=== PATIENT | male | born 1995 | race Two or more races ===

== ENCOUNTER 2020-06-07 16:25 | Outpatient (REF) | payer OTHER, SELFPAY | END 2020-06-07 16:26 | disposition home or self-care (01) | LOC: HO.LAB 16:25 | PROVIDERS: PCP Internal Medicine; Visit Provider Internal Medicine | DX: Z20.828 Contact with and (suspected) exposure to other viral communicable diseases (principal) | CPT/HCPCS: C9803; U0003 ==

== ENCOUNTER 2020-06-24 22:34 | Emergency (ER) | payer OTHER, SELFPAY ==
[2020-06-24 22:42] VITALS: BP 120/84; BP 129/86; PULSE 82; PULSE 83; RESP 16; TEMP 37; O2SAT 100; O2SAT 98; BMI 30.6
--- NOTE | 2020-06-24 22:47 | ECG_ITS ---
Test Reason : UNRESPONSIVE Blood Pressure : / mmHG Vent. Rate : 084 BPM Atrial Rate : 084 BPM P-R Int : 164 ms QRS Dur : 082 ms QT Int : 346 ms P-R-T Axes : 043 054 018 degrees QTc Int : 408 ms Normal sinus rhythm Normal ECG No previous ECGs available Referred By: Adiel Bravo Electronically Signed By:JONNY JACOB
--- NOTE | 2020-06-24 22:52 | PC.NURSE ---
PT RESPONDED TO AMMONIA CAPSULE BY TURNING HEAD AWAY, REACHING UP WITH RIGHT ARM. PT DRANK 1-2 SIPS OF WATER AND SWALLOWED. PT PURPOSEFULLY NOT RESPONDING, WILL OPEN MOUTH FOR ORAL TEMPERATURE BUT NOT CLOSE MOTH. RECTAL TEMPERATURE NECESSARY TO COMPLETE VITALS.
[2020-06-24 22:57] LABS: Glucose, Whole Blood 73 mg/dL (60-115)
--- NOTE | 2020-06-24 23:00 | ED.AMS ---
HPI - Altered Mental Status General Chief Complaint: Psychiatric Symptoms Stated Complaint: UNRESPONSIVE PAIN,NORM VS,? MED INGESTION Time Seen by Provider: 06/24/20 22:47 Source: EMS Mode of arrival: EMS Limitations: altered mental status History of Present Illness HPI narrative: For patient's girlfriend patient was depressed for last few days and found unresponsive in bed with an unlabeled empty medication bottle patient not responding but vitals were stable POC was 73 saturating 98% at room air no signs of head injury no vomitus around the patient at scene no history of substance abuse in the past MD complaint: altered mental status Related Data Allergies Allergy/AdvReac Type Severity Reaction Status Date / Time No Known Allergies Allergy Verified 06/25/20 01:15 Review of Systems Review of Systems: Yes Unobtainable due to mental status PMFSH Social History Social History Advance Directives: No Physical Exam Vital Signs: Vital Signs: Last Vital Signs Temp 98.6 F 06/24/20 22:42 Pulse 86 06/25/20 00:00 Resp 16 06/24/20 22:42 BP 101/74 06/25/20 01:24 Pulse Ox 98 06/25/20 01:24 Body Mass Index 30.6 Const: General: no acute distress, well developed and patient obtunded Orientation/consciousness: patient obtunded HENMT: Head: Yes normal to inspection, Yes No palpable skull fracture present, Yes normocephalic and Yes atraumatic Ears: external ears normal General nose exam: Normal external nose present Face and sinus: Yes normal facial exam Mouth: Normal oral and palatal mucosa present Eyes: General: appearance normal, both eyes and all related structures Conjunctivae: conjunctivae normal Sclerae: sclerae normal Pupils: Equal, round and reactive pupils present Neck: Neck: Yes normal visual inspection, Yes no lymphadenopathy and Yes no meningeal signs Thyroid: Thyroid normal Chest: Chest palpation & inspection: normal inspection of the chest Resp: Effort & Inspection: normal respiratory effort Auscultation: clear to auscultation bilaterally, no crackles, no rales and no rhonchi Cardio: Jugular venous distension: no JVD Palpation: normal PMI Rate: regular rate Rhythm: regular rhythm Heart sounds: S1 normal heart sound present and S2 normal heart sound present GI: Inspection: Yes normal to inspection Palpation (GI): Soft to palpation Auscultation: normal bowel sounds Back/Spine/Pelvis: Thoracic/Lumbar Spine: thoracic and lumbar spine normal to inspection Neuro: Other: Patient is obtunded negative for any focal deficit Babinski absent General: no meningeal signs and patient obtunded Cranial nerves: Yes Equal, round and reactive pupils present Course Course Course Narrative: Patient does not meet any criteria for any drug overdose at this time normal vitals EKG was also normal and patient responded ammonia inhalation again went to sleep will do the basic workup including drug screening Reevaluation(s) Reevaluation #1: Patient responded more awake and Oliver catheter was placed said that he took some pills does not know the name, no medications at home and bottle was without any label. Per patient's girlfriend patient had done same thing about 5 years ago without any significant overdose Time: 00:11 Reevaluation #2: Patient sleepy but easily arousable but does not want to talk will get care team involved lab still pending, tox positive for benzo, will sign out patient to Dr. Phillips for disposition Time: 00:59 MDM - Altered Mental Status Lab Data Attestation: I reviewed the patient's lab results. Result diagrams: 06/24/20 23:49 06/25/20 00:59 Labs: Lab Results 06/24/20 06/24/20 06/24/20 Range/Units 22:40 23:49 23:50 WBC 8.7 (4.8-10.8) X10*3/uL RBC 6.28 H (4.60-5.80) X10*6/uL Hgb 16.8 (14.0-18.0) g/dl Hct 51.9 (42-52) % MCV 82.6 (80-98) fL MCH 26.8 L (27.0-33.0) pg MCHC 32.4 (31.0-36.0) g/dl RDW 12.4 (11.0-16.0) % Plt Count 370 (160-400) X10*3/uL MPV 8.8 L (9.4-12.4) fL Immature Gran % (Auto) 0.3 (0.0-0.4) % Neut % (Auto) 69.1 (45-73) % Lymph % (Auto) 21.4 (20-40) % [place] % (Auto) 7.5 (2-11) % Eos % (Auto) 1.1 (0-4) % Baso % (Auto) 0.6 (0-2) % Lymph # (Auto) 1.9 (1.2-4.9) X10*3/uL [place] # (Auto) 0.7 (0.1-1.2) X10*3/uL Eos # (Auto) 0.1 (0.0-0.4) X10*3/uL Baso # (Auto) 0.1 (0.0-0.2) X10*3/uL Abs Immat Gran (auto) 0.03 (0.00-0.03) X10*3/uL Absolute Neuts (auto) 6.0 (2.0-8.3) X10*3/uL Absolute Nucleated RBC 0.000 (0.0-0.012) X10*3/uL Nucleated RBC % (auto) 0.0 (0.0-0.2) /100WBC Sodium Cancelled Potassium Cancelled Chloride Cancelled Carbon Dioxide Cancelled Anion Gap Cancelled BUN Cancelled Creatinine Cancelled Estim Creat Clear Calc Cancelled Estimated GFR Cancelled POC Glucose 73 (60-115) mg/dL Random Glucose Cancelled Calcium Cancelled Total Bilirubin Cancelled AST Cancelled ALT Cancelled Alkaline Phosphatase Cancelled Total Protein Cancelled Albumin Cancelled Salicylates Cancelled Urine Opiates Screen (Not Detect) Acetaminophen Cancelled Ur Barbiturates Screen (Not Detect) Ur Phencyclidine Scrn (Not Detect) Ur Amphetamines Screen (Not Detect) U Benzodiazepines Scrn (Not Detect) Urine Cocaine Screen (Not Detect) U Marijuana (THC) Screen (Not Detect) Ethyl Alcohol mg/dL 06/24/20 06/25/20 06/25/20 Range/Units 23:50 00:03 00:59 WBC (4.8-10.8) X10*3/uL RBC (4.60-5.80) X10*6/uL Hgb (14.0-18.0) g/dl Hct (42-52) % MCV (80-98) fL MCH (27.0-33.0) pg MCHC (31.0-36.0) g/dl RDW (11.0-16.0) % Plt Count (160-400) X10*3/uL MPV (9.4-12.4) fL Immature Gran % (Auto) (0.0-0.4) % Neut % (Auto) (45-73) % Lymph % (Auto) (20-40) % [place] % (Auto) (2-11) % Eos % (Auto) (0-4) % Baso % (Auto) (0-2) % Lymph # (Auto) (1.2-4.9) X10*3/uL [place] # (Auto) (0.1-1.2) X10*3/uL Eos # (Auto) (0.0-0.4) X10*3/uL Baso # (Auto) (0.0-0.2) X10*3/uL Abs Immat Gran (auto) (0.00-0.03) X10*3/uL Absolute Neuts (auto) (2.0-8.3) X10*3/uL Absolute Nucleated RBC (0.0-0.012) X10*3/uL Nucleated RBC % (auto) (0.0-0.2) /100WBC Sodium 143 Potassium 3.5 Chloride 105 Carbon Dioxide 23 Anion Gap 19 BUN 13 Creatinine 1.19 Estim Creat Clear Calc 95.8 Estimated GFR > 60 POC Glucose (60-115) mg/dL Random Glucose 67 Calcium 10.2 Total Bilirubin 1.1 H AST 18 ALT 20 Alkaline Phosphatase 85 Total Protein 8.8 H Albumin 5.3 H Salicylates Urine Opiates Screen Not Detected (Not Detect) Acetaminophen Ur Barbiturates Screen Not Detected (Not Detect) Ur Phencyclidine Scrn Not Detected (Not Detect) Ur Amphetamines Screen Not Detected (Not Detect) U Benzodiazepines Scrn POSITIVE H (Not Detect) Urine Cocaine Screen Not Detected (Not Detect) U Marijuana (THC) Screen Not Detected (Not Detect) Ethyl Alcohol < 10 mg/dL ECG Data ECG #1: Attestation: I personally reviewed and interpreted this ECG as follows: Interpretation: Normal sinus rhythm heart rate 84 normal intervals normal axis no acute ST-T changes impression normal EKG Discharge Plan Discharge Clinical Impression: Mood disorder Depression Qualifiers: Depression Type: reactive depression Qualified Code(s): F32.9 - Major depressive disorder, single episode, unspecified
[2020-06-24 23:30] VITALS: BP 117/84; PULSE 87; O2SAT 97
[2020-06-24 23:56] LABS: MANUAL DIFF FLAG NO
--- NOTE | 2020-06-24 23:59 | PC.NURSE ---
PT ANSWERING WITH SHORT RESPONSES, IN [place] TO PCT. PT STATES HE TOOK PILLS TO GO TO SLEEP FOLLOWING A DISAGREEMENT WITH GIRLFRIEND.
[2020-06-25] VITALS (8 sets, daily range): BP systolic 101–136; BP diastolic 70–88; PULSE 70–90; RESP 14–16; TEMP 36.1; O2SAT 97–99
[2020-06-25 00:02] LABS: Basophils Absolute Auto 0.1 X10*3/uL (0.0-0.2); Basophils Percent Auto 0.6 % (0-2); Eosinophils Absolute Auto 0.1 X10*3/uL (0.0-0.4); Eosinophils Percent Auto 1.1 % (0-4); Hematocrit 51.9 % (42-52); Hemoglobin 16.8 g/dl (14.0-18.0); Imm Gran Abs Auto 0.03 X10*3/uL (0.00-0.03); Imm Gran Pct Auto 0.3 % (0.0-0.4); Lymphocytes Absolute Auto 1.9 X10*3/uL (1.2-4.9); Lymphocytes Percent Auto 21.4 % (20-40); Mean Corpuscular HGB Conc 32.4 g/dl (31.0-36.0); Mean Corpuscular Hemoglobin 26.8 pg (27.0-33.0); Mean Corpuscular Volume 82.6 fL (80-98); Mean Platelet Volume 8.8 fL (9.4-12.4); Monocytes Absolute Auto 0.7 X10*3/uL (0.1-1.2); Monocytes Percent Auto 7.5 % (2-11); Neutrophils Percent Auto 69.1 % (45-73); Platelet Count 370 X10*3/uL (160-400); Red Blood Count 6.28 X10*6/uL (4.60-5.80); Red Cell Distribution Width 12.4 % (11.0-16.0); White Blood Count 8.7 X10*3/uL (4.8-10.8)
[2020-06-25 00:20] LABS: Ethanol < 10 mg/dL
[2020-06-25 00:50] LABS: Amphetamine Screen Urine Not Detected (Not Detect); Barbiturates, Urine Not Detected (Not Detect); Benzodiazepines Screen Urine POSITIVE (Not Detect); Cannabinoid Screen Urine Not Detected (Not Detect); Cocaine Screen Urine Not Detected (Not Detect); Opiate Screen Urine Not Detected (Not Detect); Phencyclidine Screen Urine Not Detected (Not Detect)
--- NOTE | 2020-06-25 00:52 | PC.NURSE ---
PT REFUSING TO SPEAK TO MEMBER OF CARE TEAM, INTERPRETOR AT BEDSIDE.
--- NOTE | 2020-06-25 01:23 | PC.NURSE ---
PT AWAKE BUT SLEEPY, TORE EKG ELECTRODES OFF, WELL BP CUFF. PT REMOVED JLOOP AND THREW IT ON FLOOR.
--- NOTE | 2020-06-25 01:23 | MHC.CARE ---
CARE Team older adult social work specialist attempts to engage pt along with industrial therapist. Pt declines to participate in intervention. knockdown worker educates pt about referral to N and plan for crisis assessment in the morning.
[2020-06-25 01:31] LABS: Alanine Aminotransferase 20 U/L (0-40); Albumin Level 5.3 g/dL (3.5-5.0); Alkaline Phosphatase 85 U/L (39-117); Anion Gap 19 (12-20); Aspartate Amino Transferase 18 U/L (5-37); Bilirubin Total 1.1 mg/dL (0.0-1.0); Blood Urea Nitrogen 13 mg/dL (9-16); Calcium 10.2 mg/dL (8.4-10.2); Carbon Dioxide 23 mmol/L (22-29); Chloride 105 mmol/L (96-108); Creatinine Clr Calc Pharmacy 95.8; Estimated Glomerular Filt Rate > 60; Glucose Random 67 mg/dL (60-115); Potassium 3.5 mmol/l (3.3-5.1); Sodium 143 mmol/L (135-145); Total Protein 8.8 g/dL (6.5-8.0)
--- NOTE | 2020-06-25 01:51 | PC.NURSE ---
summary faxed to [facility].
[2020-06-25 03:12] LABS: Acetaminophen LAB < 1 mcg/mL (<30); Salicylate < 5.0 mg/dL (15-30)
--- NOTE | 2020-06-25 08:44 | PC.NURSE ---
Pt Refused any psychiatric sx, denies si/hi, unable to recall events prior to ed visit. denies self harm in past. aware he is awaiting n and agreeable. refused breakfast tray. belongings taken from bedside, to be secured in locker in pod
--- NOTE | 2020-06-25 10:40 | PC.NURSE ---
[facility] at bedside
--- NOTE | 2020-06-25 11:22 | PC.NURSE ---
Karina spoke with pt who continues to be vague. Dr Hernandez spoke with girlfriend Nicolas who states pt is depressed over not working at this time but doesnt disclose much info about depression or feelings. Girlfriend agreeable to pt had an SI attempt. Kenzie in to speak with pt and aware that pt will be on a section 12 and will have a [facility] follow up tomorrow.
--- NOTE | 2020-06-25 12:29 | PC.NURSE ---
Patient refuses afternoon meal.
--- NOTE | 2020-06-25 12:53 | PC.NURSE ---
Pt refuses lunch at this time. Request PO fluids at times. No home meds Calm/cooperative, in chair near bed
--- NOTE | 2020-06-25 14:17 | PC.NURSE ---
Pt noted to be standing at entryway of room with hands crossed over chest. Electrician Assistant called and this RN spoke to pt and reiterated plan for N follow up tomorrow. Pt states I want to leave, im fine now This RN continues to relay concerns for staff as pt came in obtunded as well as sister and girlfriends confirms pt is depressed over not having a job at this time and has done this in the past. Pt also made aware that he is unable to leave at this time and section 12 status for pt safety. Kenzie PA over to also speak to pt and discuss plan. Pt observer for monitoring/safety
--- NOTE | 2020-06-25 16:16 | PC.NURSE ---
Pt arrived to unit from main ED. Pt affect sad, pt states he does not feel he needs to be here. Pt denies SI, states that he did not attempt suicide but that he is having trouble sleeping. Pt oriented to unit, pt aware that crisis will be in tomorrow to re-evaluate. Pt currently resting in room.
--- NOTE | 2020-06-25 19:23 | PC.NURSE ---
Report received. PT is sleeping in the room. Breathing is even and unlabored. PT to have follow up visit with [facility] tomorrow morning.
--- NOTE | 2020-06-26 00:30 | PC.NURSE ---
Mother called earlier. Call back number is [phone].
[2020-06-26 06:00] VITALS: BP 109/71; PULSE 71; RESP 18; TEMP 36.9; O2SAT 99
--- NOTE | 2020-06-26 07:08 | PC.NURSE ---
Report received. PT currently on the phone, in no apparent distress. Pt to be re-evaluated by N this morning.
[2020-06-26 10:13] LABS: COVID-19 Test Negative (Negative)
[2020-06-26 10:14] VITALS: BP 118/85; PULSE 86; RESP 18; TEMP 37.1; O2SAT 99
== END 2020-06-26 10:59 | disposition home or self-care (01) ==
PROVIDERS: Internal Medicine; Physician Assistant Medical; Emergency Provider Emergency Medicine Emergency Medical Services
DX: F32.9 Major depressive disorder, single episode, unspecified (principal); Z20.828 Contact with and (suspected) exposure to other viral communicable diseases
CPT/HCPCS: 36415; 80053; 80307; 80320; 82947; 85025; 87635; 93005; 99285; G0480

== ENCOUNTER 2021-03-22 12:34 | Outpatient (REF) | payer OTHER, SELFPAY | END 2021-03-22 12:35 | disposition home or self-care (01) | LOC: HO.LAB 12:34 | PROVIDERS: Internal Medicine; PCP Internal Medicine; Visit Provider Internal Medicine | DX: Z20.822 Contact with and (suspected) exposure to COVID-19 (principal) | CPT/HCPCS: C9803; U0003; U0005 ==

== ENCOUNTER 2021-06-21 14:49 | Emergency (ER) | payer OTHER, SELFPAY ==
--- NOTE | ~2021-06-21 | XR_ITS ---
EXAMINATION: XR LUMBOSACRAL SPINE CLINICAL INFORMATION: Low back pain radiating down lower extremity. COMPARISON: CT lumbar spine 02/22/2019. TECHNIQUE: Three views of the lumbosacral spine. FINDINGS: There is normal lumbar segmentation with 5 nonrib-bearing lumbar vertebrae of normal height and normal lumbar lordosis. There is no lumbar vertebral compression, spondylolisthesis, disc space narrowing, destructive process. Bony mineralization appears normal. The SI joints and visualized sacrum are unremarkable. XR/XR lumbar spine 2-3V IMPRESSION: Unremarkable examination.
[2021-06-21 14:58] VITALS: BP 141/78; PULSE 87; RESP 18; TEMP 36.6; O2SAT 97; BMI 27.4
--- NOTE | 2021-06-21 16:07 | ED.BACK ---
HPI - Back Pain/Injury General Chief Complaint: Back Pain/Injury Stated Complaint: leg pain Time Seen by Provider: 06/21/21 16:02 Source: patient Mode of arrival: ambulatory Limitations: no limitations History of Present Illness HPI Narrative: 25-year-old male presents to ED for back pain radiating down left leg. Patient denies any testicular pain, abdominal pain, dysuria, hematuria, nausea, vomiting, fever, chills, or flank pain. Patient denies any trauma. Patient states pain started yesterday. Patient states he has had this before in the past and been evaluated and has found nothing wrong. Patient denies any urinary/bowel incontinence. Patient denies any history of IV drug use or immunocompromised disease. Related Data Previous Rx's Medication Instructions Recorded diphenhydramine HCl 25 mg tablet 50 mg PO BEDTIME PRN #10 tab 06/26/20 (Benadryl Allergy) cyclobenzaprine 10 mg tablet 10 mg PO TID PRN #18 tab 06/21/21 ketorolac 10 mg tablet 10 mg PO QID PRN 5 Days #20 tab 06/21/21 Allergies Allergy/AdvReac Type Severity Reaction Status Date / Time No Known Allergies Allergy Verified 06/25/20 01:15 Review of Systems Review of Systems: Yes all other systems are reviewed and are negative Constitutional: Constitutional: Reports as per HPI and Reports no additional constitutional complaints Eyes: Eyes: Reports as per HPI and Reports no additional eye complaints ENT: Reports system reviewed and no additional complaints, except as documented and Reports as per HPI Cardiovascular: Cardiovascular: Reports as per HPI and Reports no additional cardiovascular complaints Respiratory: Respiratory: Reports as per HPI and Reports no additional respiratory complaints Gastrointestinal: Gastrointestinal: Reports as per HPI and Reports no additional gastrointestinal complaints Genitourinary: Genitourinary: Reports no additional male genitourinary complaints and Reports as per HPI Musculoskeletal: Musculoskeletal: Reports no additional musculoskeletal complaints, Reports as per HPI and Reports back pain Integumentary/Breasts: Skin/Breast: Reports system reviewed and no additional complaints, except as docu and Reports as per HPI Neurologic: Reports system reviewed and no additional complaints, except as documented and Reports as per HPI Psychiatric: Psychiatric: Reports no additional psychiatric complaints and Reports as per HPI PMFSH Social History Social History Advance Directives: No Advance Directives Information Provided: No Physical Exam Vital Signs: Vital Signs: Last Vital Signs Temp 98 F 06/21/21 14:58 Pulse 87 06/21/21 14:58 Resp 18 06/21/21 14:58 BP 141/78 H 06/21/21 14:58 Pulse Ox 97 06/21/21 14:58 BMI result Body Mass Index 27.4 Const: General: cooperative, healthy appearing, comfortable, no acute distress, well developed, alert, awake and Physically active Orientation/consciousness: patient oriented x3 HENMT: Head: Yes normal to inspection, Yes No palpable skull fracture present, Yes normocephalic, Yes atraumatic and No abrasion Eyes: General: appearance normal, both eyes and all related structures Neck: Neck: Yes normal visual inspection, Yes full ROM, Yes no lymphadenopathy, Yes no meningeal signs, Yes trachea midline, Yes supple, No anterior neck swelling and No tender Chest: Chest palpation & inspection: normal inspection of the chest and normal palpation of entire chest wall Resp: Effort & Inspection: normal respiratory effort and able to speak in complete sentences Auscultation: clear to auscultation bilaterally Cardio: Jugular venous distension: no JVD Heart sounds: S1 normal heart sound present and S2 normal heart sound present GI: Inspection: Yes normal to inspection and No abdominal wall ecchymosis Palpation (GI): Soft to palpation, not firm, nontender, no guarding and not rigid : General: No CVA tenderness and Yes no CVA tenderness Back/Spine/Pelvis: Back: no CVA tenderness, No CVA tenderness and back tenderness (lumbar) Skin: General skin exam: no rashes or lesions noted and elasticity normal Neuro: General: patient oriented x3, gait normal, no meningeal signs and CN's II-XI intact bilaterally Cranial nerves: Yes CN's II-XII intact bilaterally Extrem: General: Yes normal to inspection and Yes full ROM Psych: Appearance: grossly normal, well kempt and not disheveled Course Course Course Narrative: Patient will be sent for lumbar x-ray. Reevaluation(s) Reevaluation #1: X-ray negative for any arthritis or fracture. Patient will be sent home with pain meds muscle relaxer. Not suspecting epidural abscess or cord compression. Patient has follow-up tomorrow morning with his primary care provider. Time: 17:25 MDM - Back Pain/Injury MDM Narrative Medical decision making narrative: Back pain Discharge Plan Discharge Clinical Impression: Lumbar back pain Patient Disposition: Home, Self-Care Instructions: Acute Low Back Pain (ED) Additional Instructions: Garcia radiograf?a result? negativa por cualquier fractura o artritis. Se le jonah? de miguel angel con analg?sicos y relajantes musculares. Sivan un seguimiento con el proveedor de atenci?n primaria para realizar un seguimiento. Regrese al servicio de urgencias por cualquier incontinencia urinaria / intestinal, dolor abdominal, disuria, hematuria, dolor en el costado, fiebre, escalofr?os, dolor testicular, par?lisis de las extremidades inferiores, incapacidad para caminar o cualquier otro s?ntoma preocupante. Prescriptions: New ketorolac 10 mg tablet 10 mg PO QID PRN (Reason: pain) 5 Days Qty: 20 RF: 0 cyclobenzaprine 10 mg tablet 10 mg PO TID PRN (Reason: pain) Qty: 18 RF: 0 No Action diphenhydramine HCl [Benadryl Allergy] 25 mg tablet 50 mg PO BEDTIME PRN (Reason: insomnia) Qty: 10 RF: 0 Stand Alone Forms: Work/School Release Interventions: ED Discharge Assessment Last Done: 06/21/21 18:10 Discharge Date/Time: 06/21/21 18:11 Print Language: [place] Citizen
[2021-06-21] MEDS: Ketorolac Tromethamine 30 MG/ML VIAL IM (16:38)
[2021-06-21] MEDS: predniSONE 20 MG TABLET 60 MG PO (16:39)
== END 2021-06-21 18:11 | disposition home or self-care (01) ==
PROVIDERS: Emergency Provider Emergency Medicine Emergency Medical Services; PCP Internal Medicine
DX: M54.50 Low back pain, unspecified (principal); M79.605 Pain in left leg; Z79.899 Other long term (current) drug therapy
CPT/HCPCS: 72100; 96372; 99284; J1885

== ENCOUNTER 2021-06-23 10:26 | Outpatient (REF) | payer OTHER, SELFPAY ==
[2021-06-23 10:43] LABS: Hemoglobin 15.8 g/dl (14.0-18.0); Mean Corpuscular HGB Conc 31.6 g/dl (31.0-36.0); Mean Corpuscular Hemoglobin 26.6 pg (27.0-33.0); Mean Corpuscular Volume 84.3 fL (80.0-98.0); Mean Platelet Volume 8.8 fL (9.4-12.4); Platelet Count 349 X10*3/uL (160-400); Red Blood Count 5.93 X10*6/uL (4.60-5.80); Red Cell Distribution Width 12.6 % (11.0-16.0); White Blood Count 9.5 X10*3/uL (4.8-10.8)
[2021-06-23 11:18] LABS: Alanine Aminotransferase 16 U/L (0-40); Albumin Level 4.5 g/dL (3.5-5.0); Alkaline Phosphatase 76 U/L (39-117); Anion Gap 12 (12-20); Aspartate Amino Transferase 18 U/L (5-37); Bilirubin Total < 0.2 mg/dL (0.0-1.0); Blood Urea Nitrogen 16 mg/dL (9-16); Calcium 9.8 mg/dL (8.4-10.2); Carbon Dioxide 28 mmol/L (22-29); Chloride 108 mmol/L (96-108); Estimated Glomerular Filt Rate > 60; Glucose Fasting 86 mg/dL (60-99); Potassium 4.3 mmol/L (3.3-5.1); Sodium 144 mmol/L (135-145); Total Protein 7.3 g/dL (6.5-8.0)
== END 2021-06-23 10:27 | disposition home or self-care (01) ==
LOC: HO.LAB 10:26
PROVIDERS: PCP Internal Medicine; Visit Provider Nurse Practitioner Family
DX: R42 Dizziness and giddiness (principal); M54.9 Dorsalgia, unspecified
CPT/HCPCS: 36415; 80053; 84443; 85027

== ENCOUNTER 2021-07-12 08:50 | Outpatient (REF) | payer OTHER, SELFPAY | END 2021-07-12 08:51 | disposition home or self-care (01) | LOC: HO.LAB 08:50 | PROVIDERS: Visit Provider Internal Medicine | DX: Z20.822 Contact with and (suspected) exposure to COVID-19 (principal) | CPT/HCPCS: C9803; U0003; U0005 ==

== ENCOUNTER 2022-07-23 16:22 | Emergency (ER) | payer OTHER, SELFPAY ==
--- NOTE | ~2022-07-23 | XR_ITS ---
EXAMINATION: XR SHOULDER, RIGHT CLINICAL INFORMATION: right shoulder pain COMPARISON: None TECHNIQUE: Three views of the right shoulder. FINDINGS: The bones and soft tissues are normal. No fracture. Glenohumeral and acromioclavicular alignment is anatomic with normal joint space. No abnormal soft tissue calcifications. XR/XR shoulder RT min 2V IMPRESSION: Normal right shoulder.
[2022-07-23 16:49] VITALS: BP 144/76; PULSE 81; RESP 16; TEMP 36.6; O2SAT 98; BMI 29.0
--- NOTE | 2022-07-23 16:50 | ED.EXTPRO ---
HPI - Extremity Problem General Chief complaint: Extremity Injury, Upper <ÓSCAR Eckert Last Filed: 07/23/22 16:52> Stated complaint: shoulder pain <ÓSCAR Eckert Last Filed: 07/23/22 16:52> Time Seen by Provider: 07/23/22 18:14 <ÓSCAR Eckert Last Filed: 07/23/22 16:52> Source: patient <ÓSCAR Swan Last Filed: 07/23/22 18:50> Mode of arrival: ambulatory <ÓSCAR Swan Last Filed: 07/23/22 18:50> History of Present Illness HPI Narrative: 27-year-old male with no significant past medical history presenting to the ED complaining of atraumatic right shoulder pain x few days. Reports pain started after heavy lifting at work, admits to associated paresthesias down upper extremity. Admits pain worse with movement. Denies direct injury/ trauma or fall, weakness, fever <ÓSCAR Swan Last Filed: 07/23/22 18:50> MD Complaint: extremity pain <ÓSCAR Swan Last Filed: 07/23/22 18:50> Onset (ago): day(s) <ÓSCAR Swan Last Filed: 07/23/22 18:50> Related Data Home medications: Home Medications Medication Instructions Recorded Confirmed acetaminophen 500 mg tablet 500 mg PO Q6H PRN 09/28/21 09/28/21 (Tylenol Extra Strength) Previous Rx's Medication Instructions Recorded diphenhydramine HCl 25 mg tablet 50 mg PO BEDTIME PRN insomnia #10 06/26/20 (Benadryl Allergy) tabs cyclobenzaprine 10 mg tablet 10 mg PO TID PRN pain #18 tabs 06/21/21 ketorolac 10 mg tablet 10 mg PO QID PRN pain 5 days #20 06/21/21 tabs acetaminophen 500 mg tablet 500 mg PO Q6H PRN fever or pain 07/23/22 (Tylenol Extra Strength) #14 tabs ketorolac 10 mg tablet 10 mg PO TID PRN pain 5 days #15 07/23/22 tabs <ÓSCAR Eckert Last Filed: 07/23/22 16:52> Allergies/Adverse reactions: Allergies Allergy/AdvReac Type Severity Reaction Status Date / Time No Known Allergies Allergy Verified 09/28/21 14:05 <ÓSCAR Eckert - Last Filed: 07/23/22 16:52> Review of Systems Review of Systems: Constitutional: No Fever, No Chills ENT/Mouth: No Ear Pain, No Nasal Congestion, No sore throat, No Rhinorrhea, No Swallowing Difficulty Cardiovascular: No Chest Pain, No SOB Respiratory: No Cough, No Sputum, No Wheezing Gastrointestinal: No Nausea, No Vomiting, No Diarrhea, No Constipation, No Abdominal pain Genitourinary: No Dysuria, No Urinary Frequency, No Hematuria, No Flank Pain Musculoskeletal: + joint pain, No Myalgias, No Joint Swelling Skin: No Skin Lesions, No rash Neuro: No Weakness, No Numbness, + Paresthesias <ÓSCAR Swan - Last Filed: 07/23/22 18:50> Yes all other systems are reviewed and are negative <ÓSCAR Swan - Last Filed: 07/23/22 18:50> Constitutional: Constitutional: Reports as per HPI <ÓSCAR Swan - Last Filed: 07/23/22 18:50> [facility] Past Medical History Attestation statement: The following information was validated with the patient. <ÓSCAR Swan - Last Filed: 07/23/22 18:50> Social History Social History: Social History Patient Tobacco Use Status: Never used Tobacco Tobacco use type: Cigarette e-Cigarette/Vaping Use: Never Used Second Hand Smoke Exposure: No Advance Directives: No Advance Directives Information Provided: No <ÓSCAR Eckert - Last Filed: 07/23/22 16:52> Physical Exam Vital Signs: Vital Signs: Last Vital Signs Temp 97.9 F 07/23/22 16:49 Pulse 81 07/23/22 16:49 Resp 16 07/23/22 16:49 BP 144/76 H 07/23/22 16:49 Pulse Ox 98 07/23/22 16:49 O2 Del Method 07/23/22 16:49 BMI result Body Mass Index 29.0 <ÓSCAR Eckert - Last Filed: 07/23/22 16:52> Vital Signs: Last Vital Signs Temp 97.9 F 07/23/22 16:49 Pulse 81 07/23/22 16:49 Resp 16 07/23/22 16:49 BP 144/76 H 07/23/22 16:49 Pulse Ox 98 07/23/22 16:49 O2 Del Method 07/23/22 16:49 BMI result Body Mass Index 29.0 <ÓSCAR Swan Last Filed: 07/23/22 18:50> Const: General: cooperative, healthy appearing and no acute distress <ÓSCAR Swan Last Filed: 07/23/22 18:50> Orientation/consciousness: patient oriented x3 <ÓSCAR Swan Last Filed: 07/23/22 18:50> Limitations: no limitations <ÓSCAR Swan - Last Filed: 07/23/22 18:50> HEENT: Head: Yes normal to inspection and Yes atraumatic <ÓSCAR Swan - Last Filed: 07/23/22 18:50> Ears: hearing grossly normal bilaterally <ÓSCAR Swan - Last Filed: 07/23/22 18:50> General nose exam: Normal external nose present <ÓSCAR Swan Last Filed: 07/23/22 18:50> Face and sinus: Yes normal facial exam <ÓSCAR Swan Last Filed: 07/23/22 18:50> Eyes: General: appearance normal, both eyes and all related structures <ÓSCAR Swan Last Filed: 07/23/22 18:50> EOM: EOMs intact bilaterally <ÓSCAR Swan Last Filed: 07/23/22 18:50> Neck: Neck: Yes normal visual inspection and Yes no meningeal signs <ÓSCAR Swan Last Filed: 07/23/22 18:50> Resp: Effort & Inspection: normal respiratory effort and no respiratory distress <ÓSCAR Swan Last Filed: 07/23/22 18:50> Cardio: Rate: regular rate <ÓSCAR Swan - Last Filed: 07/23/22 18:50> Peripheral pulses: Peripheral pulses 2+ throughout <ÓSCAR Swan - Last Filed: 07/23/22 18:50> Skin: Rashes: no rashes <ÓSCAR Swan Last Filed: 07/23/22 18:50> Wounds: no wounds <ÓSCAR Swan Last Filed: 07/23/22 18:50> Neuro: General: patient oriented x3, tone normal and no meningeal signs <ÓSCAR Swan Last Filed: 07/23/22 18:50> Gait exam (Neuro): Normal gait present <ÓSCAR Swan Last Filed: 07/23/22 18:50> Extrem: Other: right shoulder without noted deformity. + Trapezius muscle tenderness and AC joint tenderness. Abduction and internal rotation mildly limited secondary to pain. neurovascular intact distally. <ÓSCAR Swan Last Filed: 07/23/22 18:50> General: Yes normal to inspection <ÓSCAR Swan Last Filed: 07/23/22 18:50> Course Course Course Narrative: RME-16:51PM - 27-year-old Swedish-speaking male presenting to the ER with complaints of atraumatic right shoulder pain radiating down his right arm that started today worse at work. Denies any recent injury. Denies any dizziness, jaw pain, chest pain or shortness of breath, dyspnea on exertion, palpitations, rashes, recent falls or any other symptoms complaints or concerns at this time. Plan: Right shoulder Xray ordered at this time. Patient will be sent back to the waiting room to be evaluated [facility]. <ÓSCAR Eckert - Last Filed: 07/23/22 16:52> RME-16:51PM - 27-year-old Swedish-speaking male presenting to the ER with complaints of atraumatic right shoulder pain radiating down his right arm that started today worse at work. Denies any recent injury. Denies any dizziness, jaw pain, chest pain or shortness of breath, dyspnea on exertion, palpitations, rashes, recent falls or any other symptoms complaints or concerns at this time. Plan: Right shoulder Xray ordered at this time. Patient will be sent back to the waiting room to be evaluated [facility]. - shoulder x-ray unremarkable. Results discussed with patient including worrisome signs and symptoms and strict return precautions, and when to return to the emergency department. They verbalized understanding and feel safe for discharge at this time. <ÓSCAR Swan - Last Filed: 07/23/22 18:50> Medications Administered Discontinued Medications Generic Name Dose Route Start Last Admin Trade Name Freq PRN Reason Stop Dose Admin Ketorolac Tromethamine 30 mg 07/23/22 18:31 07/23/22 18:40 Ketorolac Tromethamine 30 Mg/Ml Vial IM 07/23/22 18:32 30 mg ONCE ONE Administration <ÓSCAR Eckert - Last Filed: 07/23/22 16:52> Medications Administered Discontinued Medications Generic Name Dose Route Start Last Admin Trade Name Freq PRN Reason Stop Dose Admin Ketorolac Tromethamine 30 mg 07/23/22 18:31 07/23/22 18:40 Ketorolac Tromethamine 30 Mg/Ml Vial IM 07/23/22 18:32 30 mg ONCE ONE Administration <ÓSCAR Swan - Last Filed: 07/23/22 18:50> Medical Decision Making Medical Decision Making MDM Narrative: 27-year-old male with no significant past medical history presenting to the ED complaining of atraumatic right shoulder pain x few days. on exam vital signs stable, NAD, nontoxic appearing, physical exam as above. ROM slightly limited secondary pain, no facial deformity. Neurovascular intact distally. No evidence of infection. Concern for rotator cuff injury vs MSK strain vs tendon/ligamental injury. Low suspicion for fracture, dislocation, septic joint/arthritis or cervical compression. Low suspicion for ACS plan: X-rays Please refer to course for remaining clinical decision making, interpretation of labs/imaging results, and discussions with consultants and/or family members. <ÓSCAR Swan - Last Filed: 07/23/22 18:50> Differential Diagnosis Differential Diagnoses: The differential diagnosis associated with the presentation includes <ÓSCRA Swan - Last Filed: 07/23/22 18:50> As above <ÓSCAR Swan - Last Filed: 07/23/22 18:50> Radiology Impression Discussion of test interpretation with radiology: I have reviewed the radiologist's reading. <ÓSCAR Swan Last Filed: 07/23/22 18:50> Prescription Management I considered prescription management with: Pain Medication <ÓSCAR Swan - Last Filed: 07/23/22 18:50> Discharge Plan Discharge Clinical Impression: Acute pain of right shoulder <ÓSCAR Eckert Last Filed: 07/23/22 16:52> Patient Disposition: Home, Self-Care <ÓSCAR Eckert Last Filed: 07/23/22 16:52> Instructions: Shoulder Pain (ED) <ÓSCAR Eckert Last Filed: 07/23/22 16:52> Additional Instructions: your x-ray is unremarkable. You likely have a muscle strain/ rotator cuff injury please follow-up with orthopedics. Toradol as an anti-inflammatory/ pain medication, take with food. In addition take Tylenol. Ice and heat. If area begins look infected, pain becomes unbearable you develop chest pain or shortness of breath return to the emergency department dee radiograf?a no tiene nada especial. Es probable que tenga harmony distensi?n muscular/lesi?n del manguito rotador por favor seguimiento con ortopedia. Toradol erica medicamento antiinflamatorio/analg?sico, t?bob con alimentos. Adem?s maynor Tylenol. Hielo y calor. Si el ?aggie comienza a lucir infectada, el dolor se vuelve insoportable. Tiene dolor en el pecho o dificultad para respirar. Regrese al departamento de emergencias. <ÓSCAR Eckert Last Filed: 07/23/22 16:52> Prescriptions: New acetaminophen [Tylenol Extra Strength] 500 mg tablet 500 mg PO Q6H PRN (Reason: fever or pain) Qty: 14 0RF ketorolac 10 mg tablet 10 mg PO TID PRN (Reason: pain) 5 Days Qty: 15 0RF No Action diphenhydramine HCl [Benadryl Allergy] 25 mg tablet 50 mg PO BEDTIME PRN (Reason: insomnia) Qty: 10 0RF ketorolac 10 mg tablet 10 mg PO QID PRN (Reason: pain) 5 Days Qty: 20 0RF Rx Instructions: patient received 30mg IM Toradol in the ED. cyclobenzaprine 10 mg tablet 10 mg PO TID PRN (Reason: pain) Qty: 18 0RF Rx Instructions: side effect is drowsiness. Do not take at work or while driving. acetaminophen [Tylenol Extra Strength] 500 mg tablet 500 mg PO Q6H PRN <ÓSCAR Eckert - Last Filed: 07/23/22 16:52> Referrals: [facility] [place] [facility] [Provider Group] - 1 week Work Connection [Outside] <ÓSCAR Eckert - Last Filed: 07/23/22 16:52> Stand Alone Forms: Work/School Release <ÓSCAR Eckert - Last Filed: 07/23/22 16:52> Interventions: ED Discharge Assessment Last Done: 07/23/22 18:44 <ÓSCAR Eckert - Last Filed: 07/23/22 16:52> Discharge Date/Time: 07/23/22 18:45 <ÓSCAR Eckert - Last Filed: 07/23/22 16:52> Print Language: Portuguese <ÓSCAR Eckert - Last Filed: 07/23/22 16:52>
[2022-07-23] MEDS: Ketorolac Tromethamine 30 MG/ML VIAL IM (18:40)
== END 2022-07-23 18:45 | disposition home or self-care (01) ==
PROVIDERS: Emergency Provider Internal Medicine; PCP Internal Medicine
DX: S43.401A Unspecified sprain of right shoulder joint, initial encounter (principal); M25.511 Pain in right shoulder; X50.0XXA Overexertion from strenuous movement or load, initial encounter; X50.3XXA Overexertion from repetitive movements, initial encounter; Y93.9 Activity, unspecified; Y92.9 Unspecified place or not applicable; Y99.9 Unspecified external cause status; Z79.899 Other long term (current) drug therapy
CPT/HCPCS: 73030; 96372; 99283; 99284; J1885

== ENCOUNTER 2022-11-08 02:14 | Emergency (ER) | payer OTHER, SELFPAY ==
[2022-11-08 02:17] VITALS: BP 146/90; PULSE 73; RESP 18; TEMP 36.4; O2SAT 100; BMI 25.0
[2022-11-08 02:35] VITALS: O2SAT 97
[2022-11-08 02:43] LABS: COVID-19 Test Negative (Negative); IDNOW Serial# 6674DD1D
--- NOTE | 2022-11-08 02:48 | ED.URI ---
HPI - URI/Sore Throat General Chief Complaint: Upper Respiratory Symptoms Stated Complaint: Nose Congestion Time Seen by Provider: 11/08/22 02:35 History of Present Illness HPI Narrative: Patient is a 27-year-old male with a history of congestion upper respiratory symptoms but been ongoing for few months. Worse in the last few days[facility]. Related Data Home Medications Medication Instructions Recorded Confirmed acetaminophen 500 mg tablet 500 mg PO Q6H PRN 09/28/21 09/28/21 (Tylenol Extra Strength) Previous Rx's Medication Instructions Recorded diphenhydramine HCl 25 mg tablet 50 mg PO BEDTIME PRN insomnia #10 06/26/20 (Benadryl Allergy) tabs cyclobenzaprine 10 mg tablet 10 mg PO TID PRN pain #18 tabs 06/21/21 ketorolac 10 mg tablet 10 mg PO QID PRN pain 5 days #20 06/21/21 tabs acetaminophen 500 mg tablet 500 mg PO Q6H PRN fever or pain 07/23/22 (Tylenol Extra Strength) #14 tabs ketorolac 10 mg tablet 10 mg PO TID PRN pain 5 days #15 07/23/22 tabs amoxicillin 875 mg-potassium 1 tab PO BID #10 tabs 09/08/22 clavulanate 125 mg tablet cetirizine 10 mg tablet (Zyrtec) 10 mg PO DAILY PRN congestion #14 11/08/22 tabs Allergies Allergy/AdvReac Type Severity Reaction Status Date / Time No Known Allergies Allergy Verified 09/07/22 16:37 Review of Systems Review of Systems: Positive coughing congestion upper respiratory symptoms. Yes all other systems are reviewed and are negative [facility] Past Medical History Attestation statement: The following information was validated with the patient. Social History Social History Alcohol intake: never Patient Tobacco Use Status: Never used Tobacco Tobacco use type: Cigarette Smoked in Last 30 Days: No e-Cigarette/Vaping Use: Never Used Second Hand Smoke Exposure: No Use of substances other than those prescribed or required for medical reasons: No Advance Directives: No Advance Directives Information Provided: Yes Physical Exam Vital Signs: Vital Signs: Last Vital Signs Temp 97.5 F 11/08/22 02:17 Pulse 73 11/08/22 02:17 Resp 18 11/08/22 02:17 BP 146/90 H 11/08/22 02:17 Pulse Ox 100 11/08/22 02:17 O2 Del Method Room Air 11/08/22 02:17 BMI result Body Mass Index 25.0 Appearance: Alert. Oriented X3. No acute distress. Eyes: Pupils equal, round and reactive to light. ENT: Pharynx normal. Positive nasal congestion is noted Neck: Normal inspection. Neck supple. No lymph nodes noted. No crepitus CVS: Normal heart rate and rhythm. Pulses normal. Normal S1 and S2 Respiratory: No respiratory distress. Breath sounds normal. No Wheezing. No rales Abdomen: Soft and nontender. No rigidity. No distention. good BS x4 Skin: Skin warm and dry. Normal skin color. Normal skin turgor. Extremities: No lower extremity edema. Neurovascular intact to all extremities. No Lacerations. No Rash Neuro: Oriented X 3. No motor deficit. No sensory deficit. Moving all extermities. No slurred speech Medical Decision Making Medical Decision Making [facility] Narrative: Patient well-appearing. O2 sat is 100% on room air. No distress. Lungs are clear. Positive nasal congestion. Will give Zyrtec. Will have patient follow-up on an outpatient basis. Differential Diagnosis Upper respiratory infection, seasonal allergies Lab Data [facility] Lab Attestation statement: I reviewed the patient's lab results. Labs: Lab Results 11/08/22 Range/Units 02:26 COVID-19 ([place]) Negative (Negative) COVID-19 Clin Com See Note Discharge Plan Discharge Clinical Impression: Upper respiratory infection Patient Disposition: Home, Self-Care Instructions: Upper Respiratory Infection (ED) Prescriptions: New cetirizine [Zyrtec] 10 mg tablet 10 mg PO DAILY PRN (Reason: congestion) Qty: 14 0RF No Action amoxicillin-pot clavulanate 875-125 mg tablet 1 tab PO BID Qty: 10 0RF diphenhydramine HCl [Benadryl Allergy] 25 mg tablet 50 mg PO BEDTIME PRN (Reason: insomnia) Qty: 10 0RF acetaminophen [Tylenol Extra Strength] 500 mg tablet 500 mg PO Q6H PRN (Reason: fever or pain) Qty: 14 0RF ketorolac 10 mg tablet 10 mg PO TID PRN (Reason: pain) 5 Days Qty: 15 0RF ketorolac 10 mg tablet 10 mg PO QID PRN (Reason: pain) 5 Days Qty: 20 0RF Rx Instructions: patient received 30mg IM Toradol in the ED. cyclobenzaprine 10 mg tablet 10 mg PO TID PRN (Reason: pain) Qty: 18 0RF Rx Instructions: side effect is drowsiness. Do not take at work or while driving. acetaminophen [Tylenol Extra Strength] 500 mg tablet 500 mg PO Q6H PRN Referrals: Physician,Unknown J [Primary Care Provider] - 11/10/22
== END 2022-11-08 03:03 | disposition home or self-care (01) ==
PROVIDERS: Emergency Provider Emergency Medicine Emergency Medical Services
DX: J06.9 Acute upper respiratory infection, unspecified (principal); Z20.822 Contact with and (suspected) exposure to COVID-19; Z20.828 Contact with and (suspected) exposure to other viral communicable diseases
CPT/HCPCS: 87635; 99283; 99284

== ENCOUNTER 2023-01-21 15:06 | Emergency (ER) | payer OTHER, SELFPAY | END 2023-01-21 16:06 | disposition left against medical advice (07) | PROVIDERS: Emergency Provider Emergency Medicine; PCP Internal Medicine | DX: M25.521 Pain in right elbow (principal) ==

== ENCOUNTER 2023-02-17 12:12 | Emergency (ER) | payer OTHER, SELFPAY ==
--- NOTE | ~2023-02-17 | XR_ITS ---
EXAMINATION: XR ELBOW, RIGHT CLINICAL INFORMATION: Evaluate for right elbow pain COMPARISON: None available. TECHNIQUE: AP, lateral, and oblique views of the right elbow. FINDINGS: The bones and soft tissues are normal. No fracture or joint effusion. Alignment is anatomic. Joint spaces are maintained. XR/XR elbow RT 2V IMPRESSION: Normal right elbow.
--- NOTE | 2023-02-17 12:18 | ED.UPPEXIN ---
HPI - Extremity Injury (Upper) General Chief Complaint: Extremity Injury, Upper Stated Complaint: R arm pain Time Seen by Provider: 02/17/23 12:36 Source: patient and RN notes reviewed Mode of arrival: ambulatory Limitations: no limitations History of Present Illness HPI narrative: This is a 27-year-old male presenting to the emergency department for evaluation of right elbow pain x1 month. He denies any recent trauma or injury. 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 He is right-handed. He reports that the pain worsens at night, reporting a throbbing sensation with numbness and tingling down into his fingers. He has been seen by urgent care where they told him to take ibuprofen. He has been taking ibuprofen and Tylenol without any relief. He has not been placed on oral steroids. Denies any fevers or chills. No other complaints or concerns at this time. MD complaint: injury to: right Onset (ago): day(s) Other injuries: none Relieving factors: immobilization Exacerbating factors: movement of extremity Associated symptoms: denies other symptoms Treatments prior to arrival: NSAIDS Related Data Home Medications Medication Instructions Recorded Confirmed acetaminophen 500 mg tablet 500 mg PO Q6H PRN 09/28/21 09/28/21 (Tylenol Extra Strength) Previous Rx's Medication Instructions Recorded diphenhydramine HCl 25 mg tablet 50 mg PO BEDTIME PRN insomnia #10 06/26/20 (Benadryl Allergy) tabs cyclobenzaprine 10 mg tablet 10 mg PO TID PRN pain #18 tabs 06/21/21 ketorolac 10 mg tablet 10 mg PO QID PRN pain 5 days #20 06/21/21 tabs acetaminophen 500 mg tablet 500 mg PO Q6H PRN fever or pain 07/23/22 (Tylenol Extra Strength) #14 tabs ketorolac 10 mg tablet 10 mg PO TID PRN pain 5 days #15 07/23/22 tabs amoxicillin 875 mg-potassium 1 tab PO BID #10 tabs 09/08/22 clavulanate 125 mg tablet cetirizine 10 mg tablet (Zyrtec) 10 mg PO DAILY PRN congestion #14 11/08/22 tabs acetaminophen 325 mg tablet 650 mg PO Q6H PRN pain #30 tabs 02/17/23 (Tylenol) ibuprofen 600 mg tablet 600 mg PO Q6H PRN pain #30 tabs 02/17/23 prednisone 20 mg tablet 40 mg PO DAILY 5 days #10 tabs 02/17/23 Allergies Allergy/AdvReac Type Severity Reaction Status Date / Time No Known Allergies Allergy Verified 02/17/23 12:28 Review of Systems Review of Systems: Yes all other systems are reviewed and are negative [facility] Past Medical History Attestation statement: The following information was validated with the patient. Social History Social History Alcohol intake: never Patient Tobacco Use Status: Never used Tobacco Tobacco use type: Cigarette e-Cigarette/Vaping Use: Never Used Second Hand Smoke Exposure: No Advance Directives: No Advance Directives Information Provided: No Physical Exam Vital Signs: Vital Signs: Last Vital Signs Temp 98.1 F 02/17/23 12:23 Pulse 78 02/17/23 12:23 Resp 18 02/17/23 12:23 BP 151/81 H 02/17/23 12:23 Pulse Ox 98 02/17/23 12:23 O2 Del Method Room Air 02/17/23 12:23 BMI result Body Mass Index 28.4 Const: Other: General: Awake, alert, and oriented X3. No acute distress. HEENT: Normal inspection CVS: Normal heart rate and rhythm. Pulses normal. Respiratory: No respiratory distress Skin: Warm, dry, no rashes noted to exposed skin. Normal skin color. Normal skin turgor. Extremities: Right upper extremity normal to inspection. Right shoulder, humerus, forearm, and wrist nontender. Patient has mild tenderness to palpation along the lateral epicondyle without any erythema, edema, warmth. Full range of motion of the elbow without difficulty. Radial pulse 2 +. Distal sensation circulation intact. Extremities well perfused. Capillary refill less than 2 seconds. Neuro: Oriented X 3. No motor deficit. No sensory deficit. Extrem: General: Yes normal to inspection Course Course Course Narrative: This is an RME: Additional HPI, ROS, PE not included below will be deferred to primary provider. Patient is a 27-year-old male presents emergency department for evaluation of right elbow pain for >1 month, atraumatic. Has tried ibuprofen without relief. Plan: XR, placed in [facility] pending availability Medical Decision Making Medical Decision Making MDM Narrative: 27-year-old male presenting to the emergency department for evaluation of right elbow pain x1 month. Given nature of pain as well as history, symptoms likely due to lateral epicondylitis. Patient has no erythema, edema, increased warmth, or any difficulty with range of motion of the elbow to suggest infectious etiology including septic joint or bursitis. Discussed at length symptomatic treatment including bracing and compression sleeve, taking anti-inflammatories. Also given prescription for prednisone. Advised to follow-up with primary care physician as he may need to follow-up with physical therapy. Patient understands and agrees with plan. Patient's right elbow placed in Feliz wrap for comfort. Patient stable for discharge Differential Diagnosis Differential Diagnoses: The differential diagnosis associated with the presentation includes Lateral epicondylitis, medial epicondylitis , bursitis(unlikely given no swelling, or erythema), septic joint (unlikely given full range of motion without any erythema or edema.) Discharge Plan Discharge Clinical Impression: Epicondylitis, lateral Patient Disposition: Home, Self-Care Instructions: Tennis Elbow (ED) Additional Instructions: Your x-rays of your elbow were normal today. Your symptoms are likely due to a condition called lateral epicondylitis. Which is inflammation your elbow due to repetitious movements like what you do at work. If your symptoms do not improve, I am giving your referral to Orthopedics, you have to call to make an appointment. You may try using a counterforce brace or compressive sleeve. You can find these at any pharmacy. You may also use Feliz wrap which was provided to you in the emergency department today. Take ibuprofen as directed. Take prescribed medication as directed. Physical therapy can help with your symptoms, you have to follow-up with primary care physician to get a referral to physical therapy. Ice your elbow after a long workday as this can help reduce symptoms. If any new or worsening symptoms occur please return for re-evaluation Prescriptions: New prednisone 20 mg tablet 40 mg PO DAILY 5 Days Qty: 10 0RF ibuprofen 600 mg tablet 600 mg PO Q6H PRN (Reason: pain) Qty: 30 0RF acetaminophen [Tylenol] 325 mg tablet 650 mg PO Q6H PRN (Reason: pain) Qty: 30 0RF No Action amoxicillin-pot clavulanate 875-125 mg tablet 1 tab PO BID Qty: 10 0RF diphenhydramine HCl [Benadryl Allergy] 25 mg tablet 50 mg PO BEDTIME PRN (Reason: insomnia) Qty: 10 0RF acetaminophen [Tylenol Extra Strength] 500 mg tablet 500 mg PO Q6H PRN (Reason: fever or pain) Qty: 14 0RF ketorolac 10 mg tablet 10 mg PO TID PRN (Reason: pain) 5 Days Qty: 15 0RF ketorolac 10 mg tablet 10 mg PO QID PRN (Reason: pain) 5 Days Qty: 20 0RF Rx Instructions: patient received 30mg IM Toradol in the ED. cyclobenzaprine 10 mg tablet 10 mg PO TID PRN (Reason: pain) Qty: 18 0RF Rx Instructions: side effect is drowsiness. Do not take at work or while driving. cetirizine [Zyrtec] 10 mg tablet 10 mg PO DAILY PRN (Reason: congestion) Qty: 14 0RF acetaminophen [Tylenol Extra Strength] 500 mg tablet 500 mg PO Q6H PRN Referrals: [facility] [place] [facility] [Provider Group] Stand Alone Forms: Work/School Release
[2023-02-17 12:23] VITALS: BP 151/81; PULSE 78; RESP 18; TEMP 36.7; O2SAT 98; BMI 28.4
== END 2023-02-17 13:46 | disposition home or self-care (01) ==
PROVIDERS: Emergency Provider Emergency Medicine; PCP Internal Medicine
DX: M77.11 Lateral epicondylitis, right elbow (principal)
CPT/HCPCS: 73070; 99283

== ENCOUNTER 2023-08-21 17:34 | Emergency (ER) | payer OTHER, SELFPAY ==
[2023-08-21 18:11] VITALS: BP 137/102; PULSE 104; RESP 19; TEMP 36.5; O2SAT 98; BMI 27.8
--- NOTE | 2023-08-21 18:11 | ED.URI ---
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 Related Data Home Medications Medication Instructions Recorded Confirmed acetaminophen 500 mg tablet 500 mg PO Q6H PRN 09/28/21 09/28/21 (Tylenol Extra Strength) Previous Rx's Medication Instructions Recorded diphenhydramine HCl 25 mg tablet 50 mg (2 x 25 mg) PO BEDTIME PRN 06/26/20 (Benadryl Allergy) insomnia #10 tabs cyclobenzaprine 10 mg tablet 10 mg PO TID PRN pain #18 tabs 06/21/21 ketorolac 10 mg tablet 10 mg PO QID PRN pain 5 days #20 06/21/21 tabs acetaminophen 500 mg tablet 500 mg PO Q6H PRN fever or pain 07/23/22 (Tylenol Extra Strength) #14 tabs ketorolac 10 mg tablet 10 mg PO TID PRN pain 5 days #15 07/23/22 tabs amoxicillin 875 mg-potassium 1 tab PO BID #10 tabs 09/08/22 clavulanate 125 mg tablet cetirizine 10 mg tablet (Zyrtec) 10 mg PO DAILY PRN congestion #14 11/08/22 tabs acetaminophen 325 mg tablet 650 mg (2 x 325 mg) PO Q6H PRN 02/17/23 (Tylenol) pain #30 tabs ibuprofen 600 mg tablet 600 mg PO Q6H PRN pain #30 tabs 02/17/23 prednisone 20 mg tablet 40 mg (2 x 20 mg) PO DAILY 5 days 02/17/23 #10 tabs oseltamivir 75 mg capsule (Tamiflu) 75 mg PO Q12H 5 days #10 caps 08/21/23 Allergies Allergy/AdvReac Type Severity Reaction Status Date / Time No Known Allergies Allergy Verified 02/17/23 12:28 Review of Systems Review of Systems: Pertinent positives and negatives as stated in HPI [facility] Past Medical History Source: nursing notes reviewed Social History Social History Alcohol intake: never Patient Tobacco Use Status: Never used Tobacco Tobacco use type: Cigarette e-Cigarette/Vaping Use: Never Used Second Hand Smoke Exposure: No Advance Directives: No Advance Directives Information Provided: No Physical Exam Vital Signs: Vital Signs: Last Vital Signs Temp 98.6 F 08/21/23 22:07 Pulse 97 08/21/23 22:07 Resp 19 08/21/23 22:07 BP 138/90 H 08/21/23 22:07 Pulse Ox 98 08/21/23 22:07 O2 Del Method Room Air 08/21/23 22:07 BMI result Body Mass Index 27.8 VITAL SIGNS: Reviewed. GENERAL: Well developed, well nourished, in no acute distress. HEAD: Normocephalic/atraumatic EYES: PERRLA, EOMI EARS: Ext canals without abnormality, TMs non-bulging and non-erythematous NOSE: Nasal congestion OROPHARYNX: no oral lesions noted, posterior pharynx clear and non-erythematous without noted tonsillar enlargement/erythema/exudates NECK: Supple, no adenopathy LUNGS: Normal breath sounds. No adventitious sounds or accessory muscle use. SpO2<98> CARDIOVASCULAR: Regular rate and rhythm without noted murmurs ABDOMEN: Soft, non-tender, non-distended with bowel sounds. MUSCULOSKELETAL: No tenderness, deformities, or effusions noted on gross inspection. EXTREMITIES: No cyanosis, clubbing or edema. SKIN: Inspection of the skin reveals no rashes NEUROLOGIC: Alert and oriented x 4. Strength and sensation to light touch were grossly intact x 4. Course Course Course Narrative: This is a rapid medical exam. Defer additional HPI, ROS, PE to primary provider. 28yo malewith no known medical history here with fatigue, cough, congestion, chills since last evening. 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 Will send testing for flu, covid VSS Medications Administered Discontinued Medications Generic Name Dose Route Start Last Admin Trade Name Freq PRN Reason Stop Dose Admin Acetaminophen 975 mg 08/21/23 23:01 08/21/23 23:11 Acetaminophen 325 Mg Tablet PO 08/21/23 23:02 975 mg ONCE ONE Administration Ibuprofen 400 mg 08/21/23 23:01 08/21/23 23:11 Ibuprofen 400 Mg Tablet PO 08/21/23 23:02 400 mg ONCE ONE Administration Oseltamivir Phosphate 75 mg 08/21/23 23:01 08/21/23 23:11 Oseltamivir Phosphate 75 Mg Capsule PO 08/21/23 23:02 75 mg ONCE ONE Administration Medical Decision Making Medical Decision Making [facility] Narrative: 28-year-old male with history and clinical presentation, DDX: Viral testing positive for flu and patient treated with Tamiflu and combination analgesics. Differential Diagnosis Differential Diagnoses: The differential diagnosis associated with the presentation includes Please see the discussion above Admission/Observation Consideration of admission/observation: Escalation of care including admission/observation considered Please see the discussion above Lab Data [facility] Lab Attestation statement: I reviewed the patient's lab results. Please see the discussion above Labs: Lab Results 08/21/23 Range/Units 18:24 COVID-19 ([facility]) Negative (Negative) COVID-19 Clin Com See Note Influenza Type A ([facility]) Positive A (Negative) Influenza Type B ([facility]) Negative (Negative) Influenza A & B Note See Note External Record Review External record reviewed: Outpatient record and Prior outpatient labs Discharge Plan Discharge Clinical Impression: Viral syndrome, Influenza A Patient Disposition: Home, Self-Care Instructions: Influenza (ED), Viral Syndrome (ED) Additional Instructions: 1. Recomiende Tylenol/ibuprofeno de venta justyna seg?n sea necesario para anibal corporales, anibal de juanita y temperaturas superiores a 100,4. Contin?e bebiendo muchos l?quidos y descanse. 2. Complete el ciclo de medicamentos que le he recetado para dee gripe. 3. Sivan un seguimiento con dee m?dico de atenci?n primaria en los pr?ximos 1 o 2 d?as. Regrese a la mandy de emergencias si los s?ntomas empeoran. 1. Recommend [id number] Tylenol/ibuprofen as needed for body aches, headaches, temperatures greater than 100.4. Continue to drink plenty of fluids and get rest. 2. Please complete the course of medications that I have prescribed for your flu. 3. Follow-up with your primary care doctor in the next 1-2 days. Return to the ER for any worsening symptoms. Prescriptions: New oseltamivir [Tamiflu] 75 mg capsule 75 mg PO Q12H 5 Days Qty: 10 0RF No Action amoxicillin-pot clavulanate 875-125 mg tablet 1 tab PO BID Qty: 10 0RF diphenhydramine HCl [Benadryl Allergy] 25 mg tablet 50 mg PO BEDTIME PRN (Reason: insomnia) Qty: 10 0RF acetaminophen [Tylenol Extra Strength] 500 mg tablet 500 mg PO Q6H PRN (Reason: fever or pain) Qty: 14 0RF ketorolac 10 mg tablet 10 mg PO TID PRN (Reason: pain) 5 Days Qty: 15 0RF ketorolac 10 mg tablet 10 mg PO QID PRN (Reason: pain) 5 Days Qty: 20 0RF Rx Instructions: patient received 30mg IM Toradol in the ED. cyclobenzaprine 10 mg tablet 10 mg PO TID PRN (Reason: pain) Qty: 18 0RF Rx Instructions: side effect is drowsiness. Do not take at work or while driving. prednisone 20 mg tablet 40 mg PO DAILY 5 Days Qty: 10 0RF ibuprofen 600 mg tablet 600 mg PO Q6H PRN (Reason: pain) Qty: 30 0RF acetaminophen [Tylenol] 325 mg tablet 650 mg PO Q6H PRN (Reason: pain) Qty: 30 0RF cetirizine [Zyrtec] 10 mg tablet 10 mg PO DAILY PRN (Reason: congestion) Qty: 14 0RF acetaminophen [Tylenol Extra Strength] 500 mg tablet 500 mg PO Q6H PRN Referrals: Milla Simeon MD [Primary Care Provider] - Stand Alone Forms: Work/School Release Interventions: ED Discharge Assessment Last Done: 08/21/23 23:11 Discharge Date/Time: 08/21/23 23:11 Print Language: Cymraes
[2023-08-21 19:01] LABS: COVID-19 Test Negative (Negative); IDNOW Serial# 08D9AD1C; IDNOW Serial# 152EDE1D; Influenza A Positive (Negative); Influenza B2 Negative (Negative)
[2023-08-21 22:07] VITALS: BP 138/90; PULSE 97; RESP 19; TEMP 37; O2SAT 98
--- NOTE | 2023-08-21 22:40 | PC.NURSE ---
pt resting quietly- awaiting provider eval- call matson within reach
[2023-08-21] MEDS: Ibuprofen 400 MG TABLET PO (23:11)
[2023-08-21] MEDS: Oseltamivir Phosphate 75 MG CAPSULE PO (23:11)
[2023-08-21] MEDS: Acetaminophen 325 MG TABLET 975 MG PO (23:11)
== END 2023-08-21 23:11 | disposition home or self-care (01) ==
PROVIDERS: Nurse Practitioner Family; Emergency Provider Student in an Organized Health Care Education/Training Program; PCP Internal Medicine
DX: J10.1 Influenza due to other identified influenza virus with other respiratory manifestations (principal); B34.9 Viral infection, unspecified; R05.9 Cough, unspecified; R50.9 Fever, unspecified
CPT/HCPCS: 87502; 87635; 99283; 99284